=== PATIENT | male | born 1995 | race Caucasian/White ===

== ENCOUNTER 2023-10-04 14:52 | Emergency (ER) | payer OTHER ==
[2023-10-04 15:09] VITALS: BP 128/70; PULSE 72; RESP 18; TEMP 98.1; BMI 31.1
[2023-10-04] MEDS ORDERED: KETOROLAC TROMETHAMINE 30 MG/1 ML VIAL ONE (15:34)
[2023-10-04] MEDS: KETOROLAC TROMETHAMINE 15 MG/ML VIAL IM ONE (15:40)
== END 2023-10-04 16:20 | disposition home or self-care (01) ==
LOC: FER 14:52
PROC: 3E0233Z Introduction of Anti-inflammatory into Muscle, Percutaneous Approach (ICD-10-PCS; principal; 2023-10-04)
DX: R07.89 Other chest pain (principal)
CPT/HCPCS: 99284-25